=== PATIENT | female | born 2000 | race Caucasian/White ===

== ENCOUNTER → 2023-09-15 10:10 | Outpatient (BNVA) | payer BC, SELFPAY | PROVIDERS: Visit Provider Obstetrics & Gynecology | DX: Z34.90 Encounter for supervision of normal pregnancy, unspecified, unspecified trimester (principal); Z3A.00 Weeks of gestation of pregnancy not specified | CPT/HCPCS: 76805; 81000 ==

== ENCOUNTER → 2023-10-14 07:58 | Outpatient (BNVA) | payer BC, SELFPAY | PROVIDERS: Visit Provider Nurse Practitioner Women's Health | DX: Z34.92 Encounter for supervision of normal pregnancy, unspecified, second trimester (principal); Z3A.20 20 weeks gestation of pregnancy | CPT/HCPCS: 84315; 87491; 87591 ==

== ENCOUNTER → 2023-11-11 14:21 | Outpatient (BNVA) | payer BC, SELFPAY | PROVIDERS: Visit Provider Obstetrics & Gynecology | DX: Z34.80 Encounter for supervision of other normal pregnancy, unspecified trimester (principal) | CPT/HCPCS: 82950; 84315; 85025 ==

== ENCOUNTER → 2023-12-22 12:15 | Outpatient (BNVA) | payer BC, SELFPAY | PROVIDERS: Visit Provider Obstetrics & Gynecology | DX: Z34.90 Encounter for supervision of normal pregnancy, unspecified, unspecified trimester (principal); Z3A.00 Weeks of gestation of pregnancy not specified | CPT/HCPCS: 76816; 84315 ==

== ENCOUNTER → 2024-01-05 08:06 | Outpatient (BNVA) | payer BC, SELFPAY | PROVIDERS: Visit Provider Obstetrics & Gynecology | DX: Z34.90 Encounter for supervision of normal pregnancy, unspecified, unspecified trimester (principal); Z3A.00 Weeks of gestation of pregnancy not specified | CPT/HCPCS: 84315; 87081 ==

== ENCOUNTER 2024-02-17 21:12 | Inpatient (IN) | payer BC, SELFPAY ==
[2024-02-17] VITALS (67 sets, daily range): BP systolic 138–228; BP diastolic 67–128; PULSE 81–154; RESP 12–20; TEMP 36.4–36.6; O2SAT 93–100; BMI 42.0
--- NOTE | 2024-02-17 19:15 | PC.NURSE ---
Media Associate in room to assist with bedside US and obtaining FHT. Patient states he was moving so much earlier today but I haven't really felt him in a couple hours . Patient also stated I've been losing my mucous plug for two days and having bloody show Media Associate then performed bedside US. Cielo-RN, Beatriz-RN, Roxanne-RN, and Nichole-RN all present at bedside as well. See other note for further documentation.
--- NOTE | 2024-02-17 19:20 | ANES.PREANE2 ---
Pre-Anesthetic Assessment Height/Weight: Height 5 ft 5 in Temp Pulse BP Pulse Ox 97.9 F 111 H 139/89 100 02/17/24 20:50 02/17/24 20:51 02/17/24 20:51 02/17/24 20:51 Emergent Social No alcohol and No tobacco Exam alert and oriented x 3 Airway Submandibular: within normal limits Cervical ROM: within normal limits Mallampati: Class III Dentition: full Anesthetic Plan ASA status: 3E Anesthesia: General Other: I was initially pulled from a patient's room stating that we had a graft that needed to go to the OR. Patient was in the OR immediately, CECE Richardson was present as well Patient was evaluated and stated that she had soup around 3 PM today Patient denies any medical history Per chart review, patient has factor V Leiden and is around 42 weeks gestation Plan to send off labs after acquiring IV access. Plan for RSI with ETT and cricothyroid pressure Medications/Allergies Home Medications Medication Instructions Recorded Confirmed Last Taken Type aspirin 81 mg tablet,delayed 81 mg PO DAILY 09/15/23 01/20/24 Unknown History release (Adult Aspirin Regimen) docosahexaenoic acid 200 mg 200 mg PO DAILY 09/15/23 01/20/24 Unknown History capsule ( DHA) Allergies Allergy/AdvReac Type Severity Reaction Status Date / Time No Known Allergies Allergy Unverified 01/20/24 15:50 [facility] Anesthesia Family History Denies family history of Colon cancer Ovarian cancer Prostate cancer Diabetes Heart disease Hyperlipidemia Breast cancer Hypertension Uterine cancer Thyroid disease Stroke Social History Smoking and tobacco/nicotine status: never used tobacco/nicotine Data Anesthesia 02/17/24 19:30 Short CBC 02/17/24 Range/Units 19:30 WBC 15.59 H (3.29-11.43) 10^3/uL Hgb 12.00 (11.27-16.99) g/dL Hct 35.0 L (36-47) % MCV 90.2 (85-98) fl Plt Count 239 (157-399) 10^3/cmm Neut % (Auto) 75.7 % Neut # (Auto) 11.81 H (1.8-7.7) 10^3/uL Cardiac Studies: No Data to Display
[2024-02-17 19:40] LABS: Basophils % 0.2 %; Eosinophils # 0.1 10^3/uL (0.0-0.8); Eosinophils % 0.8 %; Lymphocytes # 2.4 10^3/uL (0.8-4.8); Lymphocytes % 15.1 %; Mean Corpuscular HGB Conc 34.3 g/dL (30-55); Mean Corpuscular Hemoglobin 30.9 pg (27-33); Mean Corpuscular Volume 90.2 fl (85-98); Mean Platelet Volume 10.9 fL (7.4-10.4); Monocytes # 1.1 10^3/uL (0.2-0.9); Monocytes % 7.2 %; Neutrophils # 11.81 10^3/uL (1.8-7.7); Neutrophils % 75.7 %; Nucleated Red Blood Cells % 0 %; Platelet Count 239 10^3/cmm (157-399); Red Blood Count 3.88 10^6/uL (3.85-5.65); Red Cell Distribution Width 13.4 % (12.1-15.1); White Blood Count 15.59 10^3/uL (3.29-11.43)
--- NOTE | 2024-02-17 20:18 | XRR_ITS ---
PROCEDURE INFORMATION: Exam: XR Abdomen Exam date and time: 02/17/2024 8:10 PM Age: 23 years old Clinical indication: Screening exam; Post surgical status; Post op instrument count check; Prior surgery; Surgery date: Post-operative (0-2 days); Surgery type: C- section; Additional info: Post c section instrument check TECHNIQUE: Imaging protocol: Radiologic exam of the abdomen. Views: Frontal supine view of the abdomen. 1 View. COMPARISON: No relevant prior studies available. FINDINGS: Gastrointestinal tract: Normal. No bowel dilation. Bones/joints: No acute fractures. Soft tissues: No radiopaque foreign bodies. Other findings: Moderate stool burden. XR/XR abdomen 1V* [id number] IMPRESSION: No unexpected radiopaque foreign bodies.
--- NOTE | 2024-02-17 21:00 | PC.NURSE ---
Demise TOD 2004 in [facility] Portfolio Architect Vilma Mars notified- no further requests at this time - body released. [facility] notified, pt potential candidate for donation at this time (Ref # [id number])
--- NOTE | 2024-02-17 21:00 | P.PN_ITS ---
Subjective 2 Subjective: Patient initially presented for emergent . Myself and SOLAR INSTALLER PV were in- house for other C-sections that were also to be performed the same evening. Patient arrived in the OR at 1919. IV access was immediately obtained in the left forearm. RSI performed with propofol and succinylcholine. ETT was obtained with surgery start time of 1924. Baby was out at 1928. Baby was initially evaluated by director underwriter sales, respiratory and OB team. Baby had no pulse. Resuscitation was immediately performed. I was called to bedside of baby to attempt intubation. Initial attempt was unsuccessful due to excessive bleeding in the throat. Patient was suctioned out and mast in between attempts. There appeared to be excessive blood coming out of the oropharynx. ETT was obtained with direct laryngoscopy Macario size 0. Color change observed on CO2 indicator. Transtracheal epinephrine was immediately given. Resuscitation attempts continued for a total of 38 minutes. The baby's father requested that we stop resuscitation attempts. Patient was extubated in the OR and taken to the recovery suite to spend time with her and baby. Vitals/I&O/Wt Last Vital Signs Temp 97.9 F 02/17/24 20:50 Pulse 84 02/17/24 20:56 BP 152/74 02/17/24 20:56 Pulse Ox 100 02/17/24 20:56 Physical Exam 2 Const: COMMON NORMALS: alert Neuro: SENSORIUM/ORIENTATION: Yes alert Data 02/17/24 19:30 Attestations 2 Medical Necessity Statement*: Coding Level of Care Code Acute Code for [facility] Fwd
--- NOTE | 2024-02-17 21:35 | P.HP_ITS ---
Providers/Chief Complaint 2 Admitting Physician: Raudel Em MD Primary ROTARY DRIER: Raudel Em MD Chief Complaint: contractions HPI ROTARY DRIER History of Present Illness Anel Cadet is a 23 year old female . G1 EDC January 27, 2024, c/w 10-wk sono At 43 w 0 d Patient was receiving care here at [facility] However, her last visit here was at 39 weeks After 39 weeks, patient did not keep her return appointments Multiple phone calls to patient and her other contacts went unanswered Then patient messaged me via portal, informing me that she is seeking care elsewhere and will no longer be returning for care now presents to L&D c/o contractions states was having labor and was planning a home delivery with a qa test lead but was in labor all day without delivering presents for further care On presentation, Patient was noted to have BP 220 / 124 heart tones in the 60s, however, that could have been maternal Due to the extreme urgent circumstance of suspected distress, it was decided to proceed with emergency for delivery procedure and risks explained to patient risks include, but not limited to, infection, bleeding, injury to internal organs, anesthesia, blood transfusions patient understands and wants to proceed Present Details : 1 Para: 0 Labs Rubella: Immune RPR: Negative Specific History Indications for Section: Distress and Non-reassuring FHT Medications/Allergies Home Medications Medication Instructions Recorded Confirmed Last Taken Type aspirin 81 mg tablet,delayed 81 mg PO DAILY 09/15/23 01/20/24 Unknown History release (Adult Aspirin Regimen) docosahexaenoic acid 200 mg 200 mg PO DAILY 09/15/23 01/20/24 Unknown History capsule ( DHA) Allergies Allergy/AdvReac Type Severity Reaction Status Date / Time No Known Allergies Allergy Unverified 01/20/24 15:50 PFSH ROTARY DRIER 2 PFSH: Family History Denies family history of Colon cancer Ovarian cancer Prostate cancer Diabetes Heart disease Hyperlipidemia Breast cancer Hypertension Uterine cancer Thyroid disease Stroke Social History Smoking and tobacco/nicotine status: never used tobacco/nicotine History History History 2 1 Term 0 Miscarriages/Ectopic Living Children Care REMI Calculator 2 Estimated Delivery Date Method Current WG Current Estimate 01/27/24 Ultrasound #1 43w 1d Other Estimates 01/11/24 LMP (Certain) 45w 3d Vitals/I&O/Wt Last Vital Signs Temp 97.2 F L 02/18/24 03:05 Pulse 97 02/18/24 07:01 Resp 16 02/18/24 06:42 BP 139/68 02/18/24 06:51 Pulse Ox 97 02/18/24 07:01 O2 Del Method Room Air 02/17/24 19:20 02/17/24 02/18/24 02/18/24 22:59 06:59 14:59 Intake Total 1100 / 1100 Output Total 2250 / 2250 Balance -1150 / -1150 Weight last 48 hrs Weight 253 lb Weight 253 lb Physical Exam 2 Const: COMMON NORMALS: patient oriented x3 and alert Resp: COMMON NORMALS: normal respiratory effort and clear to auscultation bilaterally Cardio: COMMON NORMALS: regular rate and regular rhythm Urinary Catheter Management: Salter: Cath Placed During This Visit: yes Reason for Continuing Indwelling Catheter: Accurate Measurement of Urinary Output in Critically Ill Patients Urinary Catheter Date of Insertion: 02/17/24 Urinary Catheter Time of Insertion: 19:21 Data 02/17/24 23:00 Results Labs OB ([facility]): 2 Obstetrics US 12/22/23 Blood Type O Positive 02/17/24 Antibody Screen Negative 02/17/24 Hct 31.1 % (36-47) L 02/17/24 Hgb 10.60 g/dL (11.27-16.99) L 02/17/24 Rho(D) Type Rh positive 02/17/24 Plt Count 247 10^3/cmm (157-399) 02/17/24 C.trachomatis RNA (TMA) Not detected (NOT DETECTED) N.gonorrhoeae RNA (TMA) Not detected (NOT DETECTED) T. vaginalis Amp RNA Not detected (NOT DETECTED) 10/14/23 Chlamydia/GC Comment See note 10/14/23 Gest Glucose Tolerance 113 mg/dL (70-139) 11/11/23 A&P Assessment and plan (1) : Qualifiers: Weeks of gestation: 20 weeks Qualified Code(s): Z3A.20 - 20 weeks gestation of Attestations 2 Medical Necessity Statement*: patient at 43 w 0 d, presented with labor Coding Level of Care Code Acute Code for Chg Fwd Diagnoses 20 weeks gestation of Z3A.20 Weeks of gestation: 20 weeks Time Spent (min) 120
[2024-02-17] MEDS: acetaminophen 1,000 MG/100 ML PIGGYBACK 400 MG IV (21:40)
--- NOTE | 2024-02-17 21:50 | P.PN_ITS ---
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 Subjective: Interval history: Patient s/p emergency primary low-transverse Noted to have continued severe hypertension Will start MgSO4 Will draw CBC, PT/PTT Rx Procardia 30 mg XL one PO Will give labetolol per hypertension protocol is BP remains sustained Labor: Amniotic Membrane Status: Intact Vitals/I&O/Wt Last Vital Signs Temp 97.2 F L 02/18/24 03:05 Pulse 89 02/18/24 07:06 Resp 16 02/18/24 06:42 BP 139/68 02/18/24 06:51 Pulse Ox 98 02/18/24 07:06 O2 Del Method Room Air 02/17/24 19:20 02/17/24 02/18/24 02/18/24 22:59 06:59 14:59 Intake Total 1100 / 1100 Output Total 2250 / 2250 Balance -1150 / -1150 Weight last 48 hrs Weight 253 lb Weight 253 lb Physical Exam 2 Urinary Catheter Management: Salter: Cath Placed During This Visit: yes Reason for Continuing Indwelling Catheter: Accurate Measurement of Urinary Output in Critically Ill Patients Urinary Catheter Date of Insertion: 02/17/24 Urinary Catheter Time of Insertion: 19:21 Data 02/17/24 23:00 A&P Assessment and plan (1) S/P : Attestations 2 Medical Necessity Statement*: patient s/p with severe preeclampsia Coding Level of Care Code Acute Code for Chg Fwd Diagnoses S/P Z98.891 Time Spent (min) 60
--- NOTE | 2024-02-17 22:05 | P.OP_ITS ---
Operative Report Date of procedure: February 17, 2024 Pre-op diagnosis: 43 w 0 d No care after 39 weeks Uterine contractions Severe pre-eclampsia Suspected distress Post-op diagnosis: 43 w 0 d No care after 39 weeks Uterine contractions Severe pre-eclampsia Suspected distress stillbirth in utero Post-op findings: No amniotic fluid Heavily meconium stained placenta Fetus with no evident vital signs on delivery Umbilical cord appeared pulseless with no blood in vein and minimal old blood in arteries normal uterus, tubes, and ovaries Procedure done: Emergency primary low-transverse Implants: none Specimens removed/disposition: placenta and cord, sent to lab Surgeon: Raudel Em MD Anesthesia: General Estimated blood loss (mL): 400 Complications: none Findings: No amniotic fluid Heavily meconium stained placenta Fetus with no evident vital signs on delivery Umbilical cord appeared pulseless with no blood in vein and minimal old blood in arteries normal uterus, tubes, and ovaries Condition: stable Disposition: floor Brief History: 23 y.o. at 43 w 0 d no care after 39 weeks severe preeclampsia suspected distress Procedure: The patient was taken to the operating room and placed supine in the left lateral tilt position. The abdomen was prepped and draped in the usual sterile fashion. General endotracheal anesthesia was induced. A Pfannenstiel incision was made and carried down through skin and subcutaneous tissue and fascia. The fascial incision was extended laterally with Garcia scissors. The fascia was from the underlying rectus muscles. The rectus muscles were split in the midline. The peritoneum was entered bluntly avoiding underlying organs. A bladder flap was created. An Jakub-O retractor was placed. A low-transverse uterine incision was made and extended laterally and bluntly av oiding the uterine vessels. No amniotic fluid was encountered. The baby was delivered in cephalic presentation atraumatically. The baby was noted to be limp and devoid of vital signs. The cord was clamped and cut and the baby was handed to pediatric staff. The umbilical cord was noted to have minimal old blood in the arteries and no blood in the umbilical vein. Cord gas and cord blood were not able to be obtained. The placenta was manually removed intact and was noted to be heavily meconium-stained. The uterine cavity was bluntly curetted with wet laps. The uterine incision was then closed with a continuous interlocking stitch of O-chromic. Adequate hemostasis was seen. Inspection of the uterine incision again showed good hemostasis. The fascia was then closed with a continuous stitch of O-Vicryl. Additional interrupted stitches of O-Vicryl were used for fascial closure. The subcutaneous tissue was irrigated and inspected for hemostasis. The skin was then closed with Insorb chema. Postoperative condition: stable EBL: 400 cc Complications: none Postoperative KUB showed no intra-abdominal foreign body or sponge
[2024-02-17] MEDS: NIFEdipine ER (24 hr) 30 mg Tablet PO (22:39)
[2024-02-17] MEDS: magnesium sulfate premix 4 GM/100 ML PREMIX IV (22:41)
[2024-02-17] MEDS: carboprost tromethamine 250 mcg/mL Amp IM (22:54)
[2024-02-17 23:12] LABS: Basophils # 0.1 10^3/uL (0.0-0.1); Basophils % 0.2 %; Eosinophils % 0.1 %; Hematocrit 31.1 % (36-47); Lymphocytes # 1.4 10^3/uL (0.8-4.8); Lymphocytes % 5.8 %; Mean Corpuscular HGB Conc 34.1 g/dL (30-55); Mean Corpuscular Hemoglobin 30.6 pg (27-33); Mean Corpuscular Volume 89.9 fl (85-98); Mean Platelet Volume 10.6 fL (7.4-10.4); Monocytes % 4.2 %; Neutrophils # 20.64 10^3/uL (1.8-7.7); Neutrophils % 88.5 %; Nucleated Red Blood Cells % 0 %; Platelet Count 247 10^3/cmm (157-399); Red Blood Count 3.46 10^6/uL (3.85-5.65); Red Cell Distribution Width 13.3 % (12.1-15.1); White Blood Count 23.34 10^3/uL (3.29-11.43)
[2024-02-17] MEDS: loperamide 2 mg Capsule 4 MG PO (23:20)
[2024-02-17] MEDS: magnesium sulfate premix 20 GM/500 ML BAG IV (23:24)
[2024-02-17 23:26] LABS: INR 0.99 (0.8-1.2)
[2024-02-17 23:27] LABS: Partial Thromboplastin Time 27.2 SECONDS (23.9-36.7)
[2024-02-17] MEDS: dextrose 5%-lactated ringers 1,000 ML 125 ML IV (23:34)
--- NOTE | 2024-02-17 23:41 | PC.NURSE ---
305 g blood loss per weighing chux under patient. Patient experienced heavy bleeding around 2250. Rn called for assistance and began fundal massage. Dr Em was notified. Hemabate given and labs drawn. Uterus firmed up and bleeding decreased.
[2024-02-18] VITALS (313 sets, daily range): BP systolic 115–198; BP diastolic 53–110; PULSE 68–117; RESP 16; TEMP 36.2–36.8; O2SAT 87–100; BMI 42.0
--- NOTE | 2024-02-18 00:23 | ANE.PACU2 ---
Inpatient post-anesthesia follow up: Airway intact: Yes Vital signs: Temperature 97.5 F Pulse Rate 96 Respiratory Rate Blood Pressure 193/86 Pulse Oximetry 97 Oxygen Delivery Me thod Oxygen Flow Rate Fraction of Inspir ed Oxygen Hydration adequate: Yes Nausea and vomiting: No Pain level: 2 Mental status: Baseline Additional Comments: There was concern for postop hemorrhage about 1 hour following . This was managed by medical management by Dr. Em. Patient appears to be doing well given her traumatic
[2024-02-18] MEDS: labetalol 5 mg/mL SDV 20mL 20 MG IVP (01:19)
[2024-02-18] MEDS: labetalol 5 mg/mL SDV 20mL 40 MG IVP (01:44)
[2024-02-18] MEDS: ketorolac 30 mg/mL INJ IVP ×2 (02:16→08:01)
[2024-02-18] MEDS: labetalol 5 mg/mL SDV 20mL 80 MG IVP (02:23)
--- NOTE | 2024-02-18 06:02 | PC.NURSE ---
SpO2 90% initially in PACU, 5L O@ via nasal cannula initiated. Decreased to 4L at 2053, decreased to 3L at 2099. Discontinued O2 at 2144.
--- NOTE | 2024-02-18 06:04 | PC.NURSE ---
Addendum entered by Raj Caban RN 02/18/24 12:31: After insertion of IV and initial dose of epi at 1947, baby was given 3ml saline flush bolus per Dr. James's orders 1952: Additional 3ml saline flush given following epi 1957: Additional 3ml saline flush given following epi 2002: Additional 3ml saline flush given following epi Original Note: 02/17/24 1858 Patient presented to triage with complaints of spotting and stalled labor. Patient states she was told by her etl tester, Jodie Griffiths to come to the hospital if her contractions didn't pick back up. Patient resistant to instructions, does not want to get into triage bed for assessment. COMCALVIN encouraging patient to sit in triage bed to allow for baby to be placed on monitor. 1906 Monitors placed per Naeem 1908 Initial Blood Pressure 220/124 1910 Naeem obtain FHTs in the 70s and place patient in Hands and Knees, SpO2 on patient showing maternal heartrate 140s 1911 REMIGIO to the room to assist, FHTs continue to be difficult to detect believed to still be in the 70s 1914 SAFIA to room with bedside ultrasound 1915 Roxanne Michael, JANUARY enters room and advised Dr Em has given orders to prep for section, Ultrasound at bedside, visual confirmation for cardiac activity per Alisia Patient taken to OR via gurney, Anesthesia already on unit, Dr Em on his way 1919 Salter placed SCHDE4 1920 IV inserted per anesthesia 1921 Betadine splash prep 1924 Cut time 1928 Uterine incision, Thick meconium and copious blood noted [address] Em bulb suctioning 's mouth and nose, SAFIA advised Dr Em that supervisor process testing is awaiting infant and to clamp and cut cord now Baby placed in awaiting pre-warmed radiant warmer, dried and stimulated. Baby pale, limp and without respiratory effort. 1929 PPV initiated, No heart rate detected, no spontaneous respiratory effort 1930 Chest compression initiated per SCHDE4 with Dr James continuing PPV 1931 Delee'd 6ml aminta blood 1932 1st attempt made to intubate per Raul H, anesthesia. Attempt unsuccessful, PPV continued with mask No heart rate, no respiratory effort 1933 Dr Diane called in to assist. 1935 Dr James attempted UVC placement, unsuccessful No heart rate, no respiratory effort 1939 Dr James attempted UVC placement a second time, unsuccessful No heart rate, no respiratory effort 1940 Chest compressions and mask PPV continuing, No heart rate, no respitratory effort 1944 Raul H, anesthesia second attempt at intubation, successful 3ml EPI given via ET tube 1946 Raul H, anesthesia obtained IV access on baby in right foot. 0.6ml EPI given in IV chest compressions continued with PPV via t-piece, no heart rate, no respiratory effort 1952 0.6ml EPI given in IV, chest compressions continued with PPV via t-piece, no heart rate, no respiratory effort Dr James and Dr Diane left OR to speak with father of baby Resuscitation efforts continued by RNs and anesthesia, chest compressions continued with PPV via t-piece, no heart rate, no respiratory effort 1957 0.6ml EPI given in IV, chest compressions continued with PPV via t-piece, no heart rate, no respiratory effort 1999 father of baby brought into OR, chest compressions continued with PPV via t-piece, no heart rate, no respiratory effort 2001 0.6ml EPI given in IV, chest compressions continued with PPV via t-piece, no heart rate, no respiratory effort [address] James, no heart rate, no respiratory effort Baby extubated and wiped with clean cloth, swaddled and handed to father
--- NOTE | 2024-02-18 06:38 | PC.NURSE ---
MTS/Saving Site Pt not candidate for MTS donation or Saving Site.
[2024-02-18] MEDS: oxyCODONE-APAP 5-325 mg Tablet PO ×3 (06:42→23:53)
--- NOTE | 2024-02-18 07:31 | PC.NURSE ---
This RN spoke with Aron Gerard head school custodianRasheed. Pt not a hold for Aron Mcneil.
[2024-02-18] MEDS: docusate sodium 100 mg Capsule PO ×2 (08:02→18:33)
[2024-02-18] MEDS: PRENATAL VIT NO.130/IRON/FOLIC 1 EACH TABLET PO (08:02)
[2024-02-18] MEDS: ferrous sulfate EC 325 mg Tablet PO ×2 (08:02→18:33)
[2024-02-18] MEDS: magnesium sulfate premix 20 GM/500 ML BAG IV ×2 (08:03→19:23)
[2024-02-18] MEDS: guaiFENesin 600 mg Tablet PO ×2 (10:10→18:33)
--- NOTE | 2024-02-18 14:05 | P.PN_ITS ---
HERB DIGGER Subjective 2 Subjective: Interval history: c/o mild incisional pain no bleeding, nausea, vomiting tolerating PO well Labor: Amniotic Membrane Status: Intact Vitals/I&O/Wt Last Vital Signs Temp 98.7 F 02/19/24 13:15 Pulse 122 H 02/19/24 12:59 Resp 18 02/19/24 13:15 BP 152/79 02/19/24 12:59 Pulse Ox 98 02/19/24 04:20 O2 Del Method Room Air 02/19/24 04:20 Physical Exam 2 Narrative: afebrile, VS normal BPs 127 / 62, 122 / 62 comfortable, awake, alert Lungs: clear Cor: RRR Abd: soft, nondistended, nontender fundus firm wound clean and dry Ext: normal Urinary Catheter Management: Moreland: Cath Placed During This Visit: yes, but has since been removed by the nurse Reason for Continuing Indwelling Catheter: Decision to DC Catheter Urinary Catheter Date of Insertion: 02/17/24 Urinary Catheter Time of Insertion: 19:21 Date Urinary Catheter Removed: 02/18/24 Time Urinary Catheter Discontinued: 21:20 Data 02/17/24 23:00 A&P Assessment and plan (1) S/P : POD #1 emergency primary low-transverse doing well continue postop care remove moreland ambulate (2) Severe preeclampsia: plan continue MgSO4 until 24-hours after delivery continue Procardia 60 mg XL one po daily for BP control Attestations 2 Medical Necessity Statement*: patient s/p primary LTCS, for postop care Coding Level of Care Code Acute Code for Chg Fwd Diagnoses S/P Z98.891 Severe preeclampsia O14.10 Time Spent (min) 30
[2024-02-18] MEDS: ibuprofen 800 mg tablet PO ×2 (15:39→21:29)
[2024-02-18] MEDS: dextrose 5%-lactated ringers 1,000 ML 125 ML IV ×2 (17:32→19:23)
[2024-02-19] VITALS (13 sets, daily range): BP systolic 143–194; BP diastolic 70–101; PULSE 78–126; RESP 16–18; TEMP 36.8–37.1; O2SAT 98
[2024-02-19] MEDS: hyDROXYzine 25 mg Capsule 50 MG PO (03:21)
[2024-02-19] MEDS: oxyCODONE-APAP 5-325 mg Tablet PO ×2 (04:20→09:38)
[2024-02-19] MEDS: PRENATAL VIT NO.130/IRON/FOLIC 1 EACH TABLET PO (09:06)
[2024-02-19] MEDS: ferrous sulfate EC 325 mg Tablet PO (09:06)
[2024-02-19] MEDS: docusate sodium 100 mg Capsule PO (09:06)
[2024-02-19] MEDS: ibuprofen 800 mg tablet PO (09:06)
[2024-02-19] MEDS: polyethylene glycol 3350 Pkt 17 gm PO (09:38)
[2024-02-19] MEDS: guaiFENesin 600 mg Tablet PO (09:38)
[2024-02-19] MEDS: Fleet Enema 133 mL Enema PR (11:22)
--- NOTE | 2024-02-19 16:15 | P.PN_ITS ---
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 Subjective: Interval history: no c/o eating, voiding, ambulating well no pain, bleeding wants to go home Labor: Amniotic Membrane Status: Intact Vitals/I&O/Wt Last Vital Signs Temp 98.7 F 02/19/24 13:15 Pulse 122 H 02/19/24 12:59 Resp 18 02/19/24 13:15 BP 152/79 02/19/24 12:59 Pulse Ox 98 02/19/24 04:20 O2 Del Method Room Air 02/19/24 04:20 Physical Exam 2 Narrative: comfortable afebrile, VS normal Abd: soft, nontender wound clean and dry Ext: normal Urinary Catheter Management: Salter: Cath Placed During This Visit: yes, but has since been removed by the nurse Reason for Continuing Indwelling Catheter: Decision to DC Catheter Urinary Catheter Date of Insertion: 02/17/24 Urinary Catheter Time of Insertion: 19:21 Date Urinary Catheter Removed: 02/18/24 Time Urinary Catheter Discontinued: 21:20 Data 02/17/24 23:00 A&P Assessment and plan (1) S/P : POD #2 emergency primary low-transverse doing well discharge home today instructions and precautions given call/return if fever, chills, nausea, vomiting, headaches, abdominal pain, bleeding, inability to void, swelling, leg pain; feelings of depression or mood changes; wound redness, swelling, or discharge; chest pain; shortness of breath f/u February 24, 2024 or PRN offered patient referral to psychiatry, psychologist, socially responsible investment adviser re demise patient refused (2) Severe preeclampsia: continue Procardia 60 mg XL one po daily for BP control Attestations 2 Medical Necessity Statement*: patient s/p , plan to discharge to home today Coding Level of Care Code Acute Code for Chg Fwd Diagnoses S/P Z98.891 Severe preeclampsia O14.10 Time Spent (min) 30
--- NOTE | 2024-02-19 17:20 | PM.OBGYDC ---
Discharge Providers AIR POLLUTION CONTROL ENGINEER Date of Admission: 02/17/24 21:12 Date of Discharge: 02/19/24 Attending Provider at Admission: Raudel Em MD Attending Provider at Discharge: Raudel Em MD Consults: none Primary AIR POLLUTION CONTROL ENGINEER: Raudel Em MD Diagnoses at Discharge Discharge Diagnosis (1) S/P : Details from hospital stay: 23 y.o. 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 processing clerk She was in labor all day without delivering presented here for further care On presentation, patient was noted to have BP of 220 / 124 heart tones was in the 60s, however, that could have been maternal Due to the extremely urgent circumstance of suspected distress, I decided to proceed with emergency for delivery Upon entering the uterus fetus was noted to have no vital signs umbilical cord appeared pulseless with no blood in vein and minimal old clotted blood in arteries placenta was heavily meconium stained there was a large blood clot in placenta Attempted resuscitation of the baby by pediatrics was not successful postoperatively, patient was started on MgSO4 for 24 hours and procardia 60 mg XL one po daily was required for BP control patient did well postoperatively and was discharged to home on the second postoperative day Status: Acute (2) Severe preeclampsia: Status: Acute Reason for Visit Reason for Visit: contractions Brief History: see above Hospital Course Hospital Course see above Information Peripartum Data: Delivery Method: complications: none Physical Exam Narrative: comfortable afebrile, VS normal Abd: soft, nontender wound clean and dry Ext: normal Urinary Catheter Management: Salter: Cath Placed During This Visit: yes, but has since been removed by the nurse Reason for Continuing Indwelling Catheter: Decision to DC Catheter Urinary Catheter Date of Insertion: 02/17/24 Urinary Catheter Time of Insertion: 19:21 Date Urinary Catheter Removed: 02/18/24 Time Urinary Catheter Discontinued: 21:20 History History History 1 Term 1 0 Miscarriages/Ectopic 0 Living Children 0 Discharge Data Studies Completed and Pending Completed Studies During Hospitalization Category Date Time Status XR abdomen 1V* [id number] Stat Exams 02/17/24 20:18 Completed Pathology: Surgical [PTH] Routine Pth 02/18/24 09:23 Completed Radiology Impressions Abdomen X-Ray 02/17/24 20:18 IMPRESSION: No unexpected radiopaque foreign bodies. Laboratory Results WBC 23.34 10^3/uL (3.29-11.43) H 02/17/24 23:00 RBC 3.46 10^6/uL (3.85-5.65) L 02/17/24 23:00 Hgb 10.60 g/dL (11.27-16.99) L 02/17/24 23:00 Hct 31.1 % (36-47) L 02/17/24 23:00 MCV 89.9 fl (85-98) 02/17/24 23:00 MCH 30.6 pg (27-33) 02/17/24 23:00 MCHC 34.1 g/dL (30-55) 02/17/24 23:00 RDW 13.3 % (12.1-15.1) 02/17/24 23:00 Plt Count 247 10^3/cmm (157-399) 02/17/24 23:00 MPV 10.6 fL (7.4-10.4) H 02/17/24 23:00 Neut % (Auto) 88.5 % 02/17/24 23:00 Lymph % (Auto) 5.8 % 02/17/24 23:00 [place] % (Auto) 4.2 % 02/17/24 23:00 Eos % (Auto) 0.1 % 02/17/24 23:00 Baso % (Auto) 0.2 % 02/17/24 23:00 Neut # (Auto) 20.64 10^3/uL (1.8-7.7) H 02/17/24 23:00 Lymph # (Auto) 1.4 10^3/uL (0.8-4.8) 02/17/24 23:00 [place] # (Auto) 1.0 10^3/uL (0.2-0.9) H 02/17/24 23:00 Eos # (Auto) 0.0 10^3/uL (0.0-0.8) 02/17/24 23:00 Baso # (Auto) 0.1 10^3/uL (0.0-0.1) 02/17/24 23:00 Nucleated RBC % (auto) 0 % 02/17/24 23:00 Nucleated RBCs # 0.0 /100WBC 02/17/24 23:00 PT 13.40 SECONDS (12.1-14.9) 02/17/24 23:00 INR 0.99 (0.8-1.2) 02/17/24 23:00 APTT 27.2 SECONDS (23.9-36.7) 02/17/24 23:00 Blood Type O Positive 02/17/24 19:30 Rho(D) Type Rh positive 02/17/24 19:30 Antibody Screen Negative 02/17/24 19:30 Procedures Performed primary low-transverse management of severe preeclampsia Vitals Last Vital Signs Temp 98.7 F 02/19/24 13:15 Pulse 122 H 02/19/24 12:59 Resp 18 02/19/24 13:15 BP 152/79 02/19/24 12:59 Pulse Ox 98 02/19/24 04:20 O2 Del Method Room Air 02/19/24 04:20 Results Labs OB ([facility]): Obstetrics 12/22/23 Blood Type O Positive 02/17/24 Antibody Screen Negative 02/17/24 Hct 31.1 % (36-47) L 02/17/24 Hgb 10.60 g/dL (11.27-16.99) L 02/17/24 Rho(D) Type Rh positive 02/17/24 Plt Count 247 10^3/cmm (157-399) 02/17/24 C.trachomatis RNA (TMA) Not detected (NOT DETECTED) 10/14/23 N.gonorrhoeae RNA (TMA) Not detected (NOT DETECTED) 10/14/23 T. vaginalis Amp RNA Not detected (NOT DETECTED) 10/14/23 Chlamydia/GC Comment See note 10/14/23 Gest Glucose Tolerance 113 mg/dL (70-139) 11/11/23 Discharge Plan Discharge Patient Disposition: Home Condition: Stable Prescriptions: New Percocet 5-325 mg tablet 1 tab PO Q6H PRN (Reason: pain) Qty: 30 0RF Procardia XL 60 mg tablet extended release 24hr 60 mg PO DAILY Qty: 30 0RF Continued DHA 200 mg capsule 200 mg PO DAILY Discontinued aspirin [Adult Aspirin Regimen] 81 mg tablet,delayed release (DR/EC) 81 mg PO DAILY No Action ferrous sulfate 325 mg (65 mg iron) tablet 325 mg PO DAILY Discharge Orders: Discharge Order (Routine); Ordered 02/19/24 Ordered By: Raudel Em Referrals: Raudel Em MD [Physician] - 02/24/24 3:00 pm Discharge Diet: Usual diet Discharge Activity: Increase activity as tolerated Patient Instructions: Depression (DC), Opioid Safety (DC), Preeclampsia and Eclampsia After Delivery (GEN), Hemorrhage (DC), OB WHC, OB Discharge Report, OB Food/Drug Interaction Guide, Opioid Safety, OB Home Care, Abnormal Bleeding Discharge Attestations AIR POLLUTION CONTROL ENGINEER Time Spent in Discharge Care*: greater than 30 min Coding Level of Care Code Acute Code for Chg Fwd Diagnoses S/P Z98.891 Severe preeclampsia O14.10 Time Spent (min) 35
== END 2024-02-19 13:16 | disposition home or self-care (01) | DRG 788 ==
LOC: OPOB 21:12 → OBGYN 21:12
PROVIDERS: Admitting Provider Obstetrics & Gynecology; Visit Provider Obstetrics & Gynecology
PROC: 10D00Z1 Extraction of Products of Conception, Low, Open Approach (ICD-10-PCS; CPT 59514; principal; 2024-02-17 19:20)
DX: O76 Abnormality in fetal heart rate and rhythm complicating labor and delivery (principal); O14.14 Severe pre-eclampsia complicating childbirth; O77.0 Labor and delivery complicated by meconium in amniotic fluid; Z3A.49 Greater than 42 weeks gestation of pregnancy; Z37.1 Single stillbirth
CPT/HCPCS: 36415; 51702; 59409; 74018; 85025; 85610; 85730; 86850; 86900; 88305; 96372; 99211; J0131; J0330; J0690; J1100; J1170; J1885; J2405; J2704; J3010; J3475; J3490; J7030; J7121

== ENCOUNTER 2024-02-27 10:37 | Emergency (ER) | payer SELFPAY ==
[2024-02-27 11:38] VITALS: BP 164/78; PULSE 75; RESP 18; TEMP 36.9; O2SAT 100; BMI 37.8
--- NOTE | 2024-02-27 13:31 | USCV_ITS ---
Anel Cadet Age: 23 Gender: F : 2000 Exam Date: 02/27/2024 13:59 Ordering Phys: Jesenia Larsen Technologist: HUNTER Exam Location: [facility] [place] Indication: LE Pain HISTORY: Lower extremity pain. PROCEDURES: Venous duplex imaging was performed in only the right lower extremity. The following venous structures were evaluated: common femoral vein, profunda vein, proximal portion of the greater saphenous vein, superficial femoral vein, and the popliteal vein. In addition, the posterior tibial and peroneal trunk were evaluated. Serial compression, augmentation maneuvers, and spectral Doppler flow evaluation were performed. FINDINGS: No evidence of DVT seen in any vessel visualized at this time. CONCLUSIONS No DVT right lower extremity. Limited exam. Dr. Lyly Pena DO (Electronically Signed) Final Date: 27 February 2024 15:41 S
--- NOTE | 2024-02-27 13:32 | XR_ITS ---
WS: [id number] Examination: XR chest 1V portable [id number] Reason for Exam: sob Date: 02/27/2024 Comparison: None. Findings: The cardiomediastinal silhouette is within normal limits There is no effusion or congestion. There is no consolidation. XR/XR chest 1V portable [id number] Impression: No acute lung process is seen.
--- NOTE | 2024-02-27 13:32 | W.ED.GENADLT ---
HPI - General Adult General: Chief complaint: General Medical Stated complaint: kenny brooks Time Seen by Provider: 02/27/24 13:19 Source: patient Mode of arrival: ambulatory Limitations: no limitations History of Present Illness: Patient is a 23-year-old female presents to ED today wanting to get checked out following her stillborn delivery on 02/16. Patient states she has followed up with her DIRECTOR OF ENROLLMENT earlier this week. She is having some discomfort to her right thigh and is concerned for a blood clot given her risk factors of recent surgery and factor V [place]. She feels like her section is healing well. She is not complaining of abdominal or pelvic pain or severe bleeding. Onset (ago): day(s) Relieving factors: none Exacerbating factors: other (sitting for long periods) Associated symptoms: Reports dyspnea (mild); Deny chest pain, headache(s), malaise, nausea, rash or vomiting Treatments prior to arrival: none Related Data Home Medications Medication Instructions Recorded Confirmed docosahexaenoic acid 200 mg 200 mg PO DAILY 09/15/23 02/24/24 capsule ( DHA) ferrous sulfate 325 mg (65 mg 325 mg PO DAILY 02/24/24 02/24/24 iron) tablet Previous Rx's Medication Instructions Recorded nifedipine 60 mg tablet,extended 60 mg PO DAILY #30 tabs 02/19/24 release 24 hr (Procardia XL) oxycodone-acetaminophen 5 mg-325 1 tab PO Q6H PRN pain #30 tabs 02/19/24 mg tablet (Percocet) Allergies Allergy/AdvReac Type Severity Reaction Status Date / Time No Known Allergies Allergy Unverified 02/24/24 11:21 Review of Systems Const: Denies: fever(s), chills, body aches, fatigue or malaise Card: Denies: chest pain Resp: Reports: dyspnea (mild); Denies: productive cough, non-productive cough, wheezing, stridor, pain on inspiration, change in phlegm color, hemoptysis or chest congestion GI: Denies: abdominal pain, nausea, vomiting or diarrhea : Denies: flank pain or dysuria Musc: Reports: extremity pain (R thigh); Denies: neck pain, back pain, extremity swelling, joint pain or joint swelling Skin/Breast: Denies: rash Neuro: Denies: headache(s), numbness in extremities, weakness in extremities, sensory changes or dizziness PFSH ED PFSH: Medical History Surgical History S/P Family History Denies family history of Colon cancer Ovarian cancer Prostate cancer Diabetes Heart disease Hyperlipidemia Breast cancer Hypertension Uterine cancer Thyroid disease Stroke Social History Smoking and tobacco/nicotine status: never used tobacco/nicotine Female Reproductive History: Date of last menstrual period: 04/06/23 Physical Exam Const: COMMON NORMALS: no acute distress, patient oriented x3, no limitations, healthy appearing, alert and well nourished GENERAL APPEARANCE: cooperative ORIENTATION/CONSCIOUSNESS: Yes awake, Yes oriented to person, Yes oriented to place and Yes oriented to time Resp: COMMON NORMALS: normal respiratory effort and clear to auscultation bilaterally AUSCULTATION: clear to auscultation bilaterally Cardio: COMMON NORMALS: regular rate and regular rhythm RATE: regular rate RHYTHM: regular rhythm GI: COMMON NORMALS: Normal to inspection, nondistended, normoactive bowel sounds present, Soft to palpation, No hepatosplenomegaly present and no masses INSPECTION: Yes normal to inspection PALPATION: Yes Soft to palpation and Yes No hepatosplenomegaly present OTHER: abdomen; is healing well : COMMON NORMALS: Yes no CVA tenderness BLADDER/KIDNEY EXAM: Yes no CVA tenderness Back/Pelvis: COMMON NORMALS: no CVA tenderness and thoracic and lumbar spine normal to inspection Extremity: COMMON NORMALS: normal to inspection, full ROM, capillary refill normal, no joint enlargement, no clubbing, cyanosis or edema, no calf tenderness and no pedal edema GENERAL: Yes normal exam except as noted OTHER: mild tenderness to R hip/thigh Neuro: COMMON NORMALS: patient oriented x3, moves all extremities, no focal motor deficits, no sensory deficits noted and gait normal SENSORIUM/ORIENTATION: Yes alert, Yes oriented to person, Yes oriented to place and Yes oriented to time Skin: COMMON NORMALS: no rashes or lesions noted GENERAL SKIN EXAM: no rashes or lesions noted Course Vital Signs: Vital signs: Vital Signs Temperature 98.4 F 02/27/24 11:38 Pulse Rate 75 02/27/24 11:38 Respiratory Rate 18 02/27/24 11:38 Blood Pressure 164/78 02/27/24 11:38 Pulse Oximetry 100 02/27/24 11:38 Oxygen Delivery Me thod Room Air 02/27/24 11:38 MDM - General Adult Medical Decision Making Patient is a 23-year-old female here with a main complaint of pain to her right hip and thigh. 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 Her ultrasound is unremarkable. Blood work overall is unremarkable. She is mildly anemic but her hemoglobin has not changed much over the past week and a half. She seems to be doing well from a standpoint. No abdominal or pelvic pain. Her seems to be healing well. At this time she has nothing to suggest a DVT, PE, preeclampsia or other emergent etiology. She feels well enough to go home. Return to ED precautions given. Medical Records I reviewed the patient's medical records. Lab Data 02/27/24 14:35 02/27/24 14:35 Radiology Impressions Chest X-Ray 02/27/24 13:32 Impression: No acute lung process is seen. Laboratory Results WBC 9.23 10^3/uL (3.29-11.43) 02/27/24 14:35 RBC 3.38 10^6/uL (3.85-5.65) L 02/27/24 14:35 Hgb 10.00 g/dL (11.27-16.99) L 02/27/24 14:35 Hct 31.5 % (36-47) L 02/27/24 14:35 MCV 93.2 fl (85-98) 02/27/24 14:35 MCH 29.6 pg (27-33) 02/27/24 14:35 MCHC 31.7 g/dL (30-55) 02/27/24 14:35 RDW 12.9 % (12.1-15.1) 02/27/24 14:35 Plt Count 395 10^3/cmm (157-399) 02/27/24 14:35 MPV 9.4 fL (7.4-10.4) 02/27/24 14:35 Neut % (Auto) 66.3 % 02/27/24 14:35 Lymph % (Auto) 23.5 % 02/27/24 14:35 [place] % (Auto) 6.5 % 02/27/24 14:35 Eos % (Auto) 1.6 % 02/27/24 14:35 Baso % (Auto) 0.3 % 02/27/24 14:35 Neut # (Auto) 6.11 10^3/uL (1.8-7.7) 02/27/24 14:35 Lymph # (Auto) 2.2 10^3/uL (0.8-4.8) 02/27/24 14:35 [place] # (Auto) 0.6 10^3/uL (0.2-0.9) 02/27/24 14:35 Eos # (Auto) 0.2 10^3/uL (0.0-0.8) 02/27/24 14:35 Baso # (Auto) 0.0 10^3/uL (0.0-0.1) 02/27/24 14:35 Nucleated RBC % (auto) 0 % 02/27/24 14:35 Nucleated RBCs # 0.0 /100WBC 02/27/24 14:35 Sodium 141 mmol/L (136-145) 02/27/24 14:35 Potassium 4.5 mmol/L (3.5-5.1) 02/27/24 14:35 Chloride 103 mmol/L (98-107) 02/27/24 14:35 Carbon Dioxide 24 mmol/L (22-29) 02/27/24 14:35 Anion Gap 18.5 (5-19) 02/27/24 14:35 BUN 19 mg/dL (6-20) 02/27/24 14:35 Creatinine 0.8 mg/dL (0.5-0.9) 02/27/24 14:35 GFR Calculation 88.1 mL/min (90-130) L 02/27/24 14:35 Glucose 102 mg/dL (65-115) 02/27/24 14:35 Calculated Osmolality 294 mOsm/kg (285-295) 02/27/24 14:35 Calcium 8.3 mg/dL (8.5-10.5) L 02/27/24 14:35 Total Bilirubin 0.2 mg/dL (0.15-1.2) 02/27/24 14:35 AST 16 U/L (0-32) 02/27/24 14:35 ALT 26 U/L (0-33) 02/27/24 14:35 Alkaline Phosphatase 96 U/L (35-105) 02/27/24 14:35 Total Protein 6.7 g/dL (6.6-8.7) 02/27/24 14:35 Albumin 3.9 g/dL (3.5-5.2) 02/27/24 14:35 Globulin 2.8 g/dL (1.3-4.6) 02/27/24 14:35 XR interpretation done by ED provider, pending radiology final review (per US tech-negative for DVT) Discharge Plan Discharge Patient Disposition: Home Clinical Impression: Acute pain of right thigh Condition: Stable Prescriptions: No Action ferrous sulfate 325 mg (65 mg iron) tablet 325 mg PO DAILY DHA 200 mg capsule 200 mg PO DAILY Percocet 5-325 mg tablet 1 tab PO Q6H PRN (Reason: pain) Qty: 30 0RF Procardia XL 60 mg tablet extended release 24hr 60 mg PO DAILY Qty: 30 0RF Discharge Orders: Discharge ED (Routine); Ordered 02/27/24 Ordered By: Jesenia Larsen Referrals: Raudel Em MD [Primary Care Provider] - Activity Restrictions/Additional Instructions: As we discussed, you can continue to follow-up with OB as scheduled. You need to return to the emergency department for onset of shortness of breath, difficulty breathing, swelling to your legs, visual changes, chest pain, severe abdominal or pelvic pain, severe bleeding, or any other concerns you may have. Coding Level of Care Code ED Nuclear Reactor Operator for Rishabh Bateman
[2024-02-27 14:42] LABS: Basophils % 0.3 %; Eosinophils # 0.2 10^3/uL (0.0-0.8); Eosinophils % 1.6 %; Hematocrit 31.5 % (36-47); Lymphocytes # 2.2 10^3/uL (0.8-4.8); Lymphocytes % 23.5 %; Mean Corpuscular HGB Conc 31.7 g/dL (30-55); Mean Corpuscular Hemoglobin 29.6 pg (27-33); Mean Corpuscular Volume 93.2 fl (85-98); Mean Platelet Volume 9.4 fL (7.4-10.4); Monocytes # 0.6 10^3/uL (0.2-0.9); Monocytes % 6.5 %; Neutrophils # 6.11 10^3/uL (1.8-7.7); Neutrophils % 66.3 %; Nucleated Red Blood Cells % 0 %; Platelet Count 395 10^3/cmm (157-399); Red Blood Count 3.38 10^6/uL (3.85-5.65); Red Cell Distribution Width 12.9 % (12.1-15.1); White Blood Count 9.23 10^3/uL (3.29-11.43)
[2024-02-27 14:59] LABS: Alanine Aminotransferase 26 U/L (0-33); Albumin Level 3.9 g/dL (3.5-5.2); Alkaline Phosphatase 96 U/L (35-105); Anion Gap 18.5 (5-19); Aspartate Amino Transferase 16 U/L (0-32); Blood Urea Nitrogen 19 mg/dL (6-20); Calcium 8.3 mg/dL (8.5-10.5); Carbon Dioxide 24 mmol/L (22-29); Chloride 103 mmol/L (98-107); Creatinine Clr Calc Pharmacy 129.0462; Globulin 2.8 g/dL (1.3-4.6); Glomerular Filtration Rate 88.1 mL/min (90-130); Glucose 102 mg/dL (65-115); Osmolality Calculated 294 mOsm/kg (285-295); Potassium 4.5 mmol/L (3.5-5.1); Sodium 141 mmol/L (136-145); Total Bilirubin 0.2 mg/dL (0.15-1.2); Total Protein 6.7 g/dL (6.6-8.7)
[2024-02-27 15:34] VITALS: PULSE 72; O2SAT 99
== END 2024-02-27 15:38 | disposition home or self-care (01) ==
PROVIDERS: Emergency Provider Physician Assistant; PCP Obstetrics & Gynecology
DX: M79.651 Pain in right thigh (principal)
CPT/HCPCS: 36415; 71045; 80053; 85025; 93971; 99284